=== PATIENT | male | born 1990 | race Two or more races ===

== ENCOUNTER 2019-05-31 10:26 | Emergency (ER) | payer OTHER ==
[~2019-05-31] VITALS: Ht 188 cm; Wt 76.7 kg
[2019-05-31 10:50] VITALS: BP 105/65
[2019-05-31] MEDS ORDERED: Cephalexin 500mg cap ORAL ONE (11:15)
[2019-05-31] MEDS ORDERED: IBUPROFEN600 MG ORAL (11:53)
[2019-05-31] MEDS ORDERED: CEPHALEXIN500 MG ORAL (11:53)
[2019-05-31 11:55] VITALS: BP 105/65
--- NOTE | 2019-05-31 12:34 | Emergency Room Report ---
History of Present Illness General Chief Complaint: Skin Rash/Abscess Source: Patient Present Illness HPI Patient presents with complaints of injury to the left foot patient is somewhat uncooperative and does not answer all questions when asked when the injury happened he Shrugs his shoulders and reports that he does not know Denies any fevers denies any chest pain however patient essentially refusing to answer any other questions Reports that he has not been seen for this Allergies: Coded Allergies: No Known Allergies (Unverified , 05/31/19) Patient History Limited by: medical condition Past Medical History: see triage record Reviewed Nursing Documentation: PMH: Agreed; PSxH: Agreed Nursing Documentation-[facility] Past Medical History: No History, Except For History Of Psychiatric Problem: Yes Review of Systems All Other Systems: limited - Other than the ones mentioned in the history of present illness all others are reviewed however they do stay limited due to the patient's uncooperativeness with answering questions Physical Exam Vital Signs Date Time Temp Pulse Resp B/P (MAP) Pulse Ox O2 Delivery O2 Flow Rate FiO2 05/31/19 10:29 97.7 76 17 105/65 (78) 98 Room Air Sp02 EP Interpretation: reviewed, normal General Appearance: well appearing, no apparent distress Head: normocephalic, atraumatic Eyes: bilateral eye PERRL, bilateral eye EOMI ENT: hearing grossly normal, normal pharynx Neck: full range of motion, supple Respiratory: lungs clear, no respiratory distress Cardiovascular #1: regular rate, rhythm Gastrointestinal: non tender Musculoskeletal: other - Secondary healing wound left lateral foot with surrounding erythema and mild swelling at the ankle no obvious fluctuance patient ambulatory Neurologic: alert, oriented x3, responsive Psychiatric: other - Blunted affect Skin: other - as above Lymphatic: no adenopathy Medical Decision Making Diagnostic Impression: Primary Impression: cellulitis Additional Impression: infected wound ER Course The area in question appears infected given the lack of knowledge of the initial incident and the timing of this I did want to obtain x-ray imaging patient however begins ambulating in the emergency room walking back and forth between his room and reports that he wants to 'get the Fxxx out of here' The area does show some questionable concern of infectious pathology therefore he was provided with initial antibiotic here and further prescription for home and requires close outpatient follow-up Last Vital Signs Date Time Temp Pulse Resp B/P (MAP) Pulse Ox O2 Delivery O2 Flow Rate FiO2 05/31/19 11:55 97.7 70 17 105/65 98 Room Air Status: improved Disposition: HOME, SELF-CARE Condition: Improved Scripts Ibuprofen* (MOTRIN*) 600 Mg Tablet 600 MG ORAL Q8H PRN for For Pain, #20 TAB 0 Refills Prov: Diya Ayala DO 05/31/19 Cephalexin* (KEFLEX*) 500 Mg Capsule 500 MG ORAL EVERY 6 HOURS for 7 Days, CAP Prov: Diya Ayala DO 05/31/19 Referrals: [facility],REFERRING (PCP) [facility] + [facility] Psych ER - Peds ER - Patient Instructions: Wound Infection, [id number], Cellulitis, [id number] Additional Instructions: Patient is provided with the discharge instructions notified to follow up with primary doctor in the next 2-3 days otherwise return to the er with any worsening symptoms. Please note that this report is being documented using FND technology. This can lead to erroneous entry secondary to incorrect interpretation by the dictating instrument. Diya Ayala DO May 31, 2019 12:34
== END 2019-05-31 11:55 | disposition home or self-care (01) ==
LOC: EMR 11:01
DX: S91.302A Unspecified open wound, left foot, initial encounter (principal); L08.9 Local infection of the skin and subcutaneous tissue, unspecified; L03.116 Cellulitis of left lower limb; X58.XXXA Exposure to other specified factors, initial encounter; Y92.9 Unspecified place or not applicable
CPT/HCPCS: 99282